=== PATIENT | male | born 1945 | race Caucasian/White ===

== ENCOUNTER 2019-02-26 11:13 | Observation (INO) ==
[~2019-02-26 11:13] MED LIST: Vancomycin 1,000 MG, Sodium Chloride IRRigation 1,000 ML IR ONE
[2019-02-26] MEDS ORDERED: CeFAZolin Syr 2,000MG/20 ML 2,000 MG/20 ML SYRINGE IVPB ONE (11:33)
[2019-02-26] MEDS ORDERED: Albuterol 2.5 MG/3 ML NEBULIZER IH PRN ×2 (11:33→12:13)
[2019-02-26] MEDS ORDERED: Ringers Solution, Lactated 1,000 ML IVC SCH (11:45)
[2019-02-26] MEDS ORDERED: *HR* Promethazine 25 MG/ML VIAL IVP PRN (12:13)
[2019-02-26] MEDS ORDERED: *HR* OxyCODONE Immed Rel 5 MG TABLET PO PRN ×2 (12:13→18:32)
[2019-02-26] MEDS ORDERED: *HR* HYDROmorphone (PF) 1 MG/ML SYRINGE IVP PRN (12:13)
[2019-02-26] MEDS ORDERED: Acetaminophen IV 1,000 MG/100 ML INFUS..BTL IVPB ONE (12:13)
[2019-02-26] MEDS ORDERED: Ondansetron 4 MG/2 ML VIAL IVP ONE (12:13)
[2019-02-26] MEDS ORDERED: *HR* Labetalol 20 MG/4 ML SYRINGE IVP PRN ×2 (12:13→18:32)
[2019-02-26] MEDS ORDERED: *HR* FentaNYL (PF) 100 MCG/2 ML VIAL ONE (12:24)
[2019-02-26] MEDS ORDERED: Lidocaine HCL 4 ML Topical Solution (Laryng-O-Jet Kit Sterile Pak) TP ONE (12:24)
[2019-02-26] MEDS ORDERED: *HR* Succinylcholine 200 MG/10 ML VIAL IVP ONE (12:24)
[2019-02-26] MEDS ORDERED: Lidocaine -MPF 2% 2 ML VIAL ONE (12:24)
[2019-02-26] MEDS ORDERED: *HR* Propofol 200 MG/20 ML VIAL IVP ONE (12:24)
[2019-02-26] MEDS ORDERED: *HR* Remifentanil 1 MG VIAL IVP ONE ×2 (12:32→16:26)
[2019-02-26] MEDS ORDERED: Bupivacaine-MPF 0.25% 10 ML VIAL ONE (13:43)
[2019-02-26] MEDS ORDERED: Protamine Sulfate 50 MG/5 ML VIAL IVP ONE (13:43)
[2019-02-26] MEDS ORDERED: Heparin 1,000 UNITS/500 mL 500 ML ONE (13:43)
[2019-02-26] MEDS ORDERED: EPHEDrine 50 MG/ML VIAL ONE (14:24)
[2019-02-26] MEDS ORDERED: Ondansetron 4 MG/2 ML VIAL ONE (14:51)
[2019-02-26] MEDS ORDERED: Dexamethasone 4 MG/ML VIAL ONE (14:51)
[2019-02-26] MEDS ORDERED: *HR* Phenylephrine 10 MG/ML VIAL ONE (15:00)
[2019-02-26] MEDS ORDERED: Ondansetron 4 MG/2 ML VIAL IVP PRN (18:32)
[2019-02-26] MEDS ORDERED: *HR* Dextrose 50 % in Water (Syg) 50 ML SYRINGE IVP PRN (18:32)
[2019-02-26] MEDS ORDERED: Naloxone 0.4 MG/ML INJ IVP PRN (18:32)
[2019-02-26] MEDS ORDERED: 0.9 % Sodium Chloride 1,000 ML IVC SCH (18:32)
[2019-02-26] MEDS ORDERED: D5% in Water 1,000 ML IVC PRN (18:32)
[2019-02-26] MEDS ORDERED: Acetaminophen 325 MG TABLET PO PRN (18:32)
[2019-02-26] MEDS ORDERED: Dextrose Gel 15 GM/37.5 ML TUBE PO PRN ×2 (18:32)
[2019-02-26] MEDS ORDERED: *HR* HYDROcodone/Acet 5/325 mg TABLET PO PRN (18:32)
[2019-02-26] MEDS ORDERED: Insulin LISPRO 300 UNITS/3 ML VIAL SQ SCH (21:00)
[2019-02-27] MEDS ORDERED: *HR* Heparin 5,000 UNIT/ML VIAL SQ SCH ×2 (06:00)
[2019-02-27] MEDS ORDERED: Insulin LISPRO 300 UNITS/3 ML VIAL SQ SCH (07:30)
[2019-02-27] MEDS ORDERED: Aspirin Enteric Coated 81 MG Tablet PO SCH (09:00)
[2019-02-27] MEDS ORDERED: *HR* Metoprolol 5 MG/5 ML VIAL IVP SCH (09:00)
[2019-02-27] MEDS ORDERED: Fenofibrate 54 MG TABLET PO SCH (09:00)
[2019-02-27] MEDS ORDERED: *HR* Glimepiride 2 MG TABLET PO SCH (09:00)
[2019-02-27 10:19] VITALS: BP 164/75
== END 2019-02-27 10:38 | disposition home or self-care (01) | DRG 39 ==
LOC: SAMDAY 11:13 → 2NNU 18:22 → INTOOBSV 18:22
PROVIDERS: ADMIT Surgery; ATTEND Surgery

== ENCOUNTER 2019-04-08 06:57 | Inpatient (IN) ==
[2019-04-08] MEDS ORDERED: Albuterol 2.5 MG/3 ML NEBULIZER IH PRN (07:39)
[2019-04-08] MEDS ORDERED: levoFLOXacin 500 MG/100 ML 500 MG/100 ML BAG IVPB ONE (07:39)
[2019-04-08] MEDS ORDERED: MetroNIDAZOLE 500 MG/100 ML 500 MG/100 ML BAG IVPB ONE (07:40)
[2019-04-08] MEDS ORDERED: Ringers Solution, Lactated 1,000 ML IVC SCH (07:45)
[2019-04-08] MEDS ORDERED: Celecoxib 200 MG CAPSULE PO ONE (07:54)
[2019-04-08] MEDS ORDERED: Gabapentin 300 MG CAPSULE PO ONE (07:54)
[2019-04-08] MEDS ORDERED: *HR* OxyCODONE Immed Rel 5 MG TABLET PO PRN (07:55)
[2019-04-08] MEDS ORDERED: *HR* Promethazine 25 MG/ML VIAL IVP PRN (07:55)
[2019-04-08] MEDS ORDERED: Ondansetron 4 MG/2 ML VIAL IVP ONE (07:55)
[2019-04-08] MEDS ORDERED: *HR* HYDROmorphone (PF) 1 MG/ML SYRINGE IVP PRN (07:55)
[2019-04-08] MEDS ORDERED: *HR* Labetalol 20 MG/4 ML SYRINGE IVP PRN (07:55)
[2019-04-08] MEDS ORDERED: *HR* FentaNYL (PF) 100 MCG/2 ML VIAL ONE (08:14)
[2019-04-08] MEDS ORDERED: *HR* Propofol 200 MG/20 ML VIAL IVP ONE (08:14)
[2019-04-08] MEDS ORDERED: *HR* Rocuronium Bromide 50 MG/5 ML VIAL ONE ×2 (08:21→10:39)
[2019-04-08] MEDS ORDERED: *HR* Succinylcholine 200 MG/10 ML VIAL IVP ONE (08:21)
[2019-04-08] MEDS ORDERED: Lidocaine -MPF 2% 2 ML VIAL ONE (08:21)
[2019-04-08] MEDS ORDERED: Dexmedetomidine HCl 400 MCG/100 ML MLS IVC ONE (08:33)
[2019-04-08] MEDS ORDERED: Ketamine *HR* 500 MG/10 ML MDV ONE (08:33)
[2019-04-08] MEDS ORDERED: Bupivacaine/EPI 1:200k 0.5%PF 30 ML VIAL ONE (08:38)
[2019-04-08] MEDS ORDERED: *HR* Magnesium Sulfate 1 GM/2 ML VIAL ONE ×2 (08:43→12:21)
[2019-04-08] MEDS ORDERED: Propofol 500 MG/50 ML INFUS..BTL ONE ×4 (08:45→11:55)
[2019-04-08] MEDS ORDERED: EPHEDrine 50 MG/ML VIAL ONE ×2 (09:17→10:20)
[2019-04-08] MEDS ORDERED: Dexamethasone 4 MG/ML VIAL ONE (09:25)
[2019-04-08] MEDS ORDERED: Ondansetron 4 MG/2 ML VIAL ONE ×2 (09:25→12:36)
[2019-04-08] MEDS ORDERED: ROPIVACAINE/PF/NS 0.25% 1 EACH SYRINGE INTRAART ONE (11:24)
[2019-04-08] MEDS ORDERED: Albumin Human 5% 25.0 GM/500 ML VIAL ONE (12:00)
[2019-04-08] MEDS ORDERED: Ketorolac 30 MG/ML VIAL ONE (12:37)
[2019-04-08] MEDS ORDERED: Ondansetron 4 MG/2 ML VIAL IVP PRN (15:06)
[2019-04-08] MEDS ORDERED: Naloxone 0.4 MG/ML INJ IVP PRN (15:06)
[2019-04-08] MEDS: 0.9 % Sodium Chloride 1,000 ML IVC SCH (15:37)
[2019-04-08] MEDS: levoFLOXacin 500 MG/100 ML 500 MG/100 ML BAG IVPB SCH (15:37)
[2019-04-08] MEDS: Morphine Sulfate Oral CONC 10 MG/0.5 ML ORAL.SYG SL PRN ×2 (15:37→20:30)
[2019-04-08] MEDS: MetroNIDAZOLE 500 MG/100 ML 500 MG/100 ML BAG IVPB SCH (16:55)
[2019-04-08] MEDS: Acetaminophen IV 1,000 MG/100 ML INFUS..BTL IVPB SCH (17:57)
[2019-04-09] MEDS: Acetaminophen IV 1,000 MG/100 ML INFUS..BTL IVPB SCH ×5 (01:39→23:41)
[2019-04-09] MEDS: MetroNIDAZOLE 500 MG/100 ML 500 MG/100 ML BAG IVPB SCH ×2 (01:40→08:56)
[2019-04-09 06:37] LABS: Basophils % 0.1 %; Hemoglobin 11.1 g/dL (12.9-16.9); Immature Granulocytes % 0.2 % (0-4); Lymphocytes # 0.4 K/mcL (0.6-4.6); Lymphocytes % 3.7 %; Mean Corpuscular HGB Conc 33.6 g/dL (31.6-35.5); Mean Corpuscular Hemoglobin 29.1 pg (28.0-33.3); Mean Corpuscular Volume 86.4 fL (83.0-100.0); Mean Platelet Volume 8.7 fL (9.4-12.4); Monocytes # 0.9 K/mcL (0.0-1.3); Monocytes % 9.3 %; Neutrophils # 8.6 K/mcL (1.6-8.9); Platelet Count 302 K/mcL (140-400); Red Blood Count 3.82 M/mcL (4.19-5.50); Red Cell Distribution Width 11.4 % (11.5-14.5); Segmented Neutrophils % 86.7 %; White Blood Count 9.9 K/mcL (4.3-11.1)
[2019-04-09] MEDS: Morphine Sulfate Oral CONC 10 MG/0.5 ML ORAL.SYG SL PRN ×2 (06:52→11:32)
[2019-04-09 06:53] LABS: BUN/Creatinine Ratio 20 (6-26); Blood Urea Nitrogen 16 mg/dL (8-23); Calcium 8.6 mg/dL (8.6-10.3); Carbon Dioxide 22 mEq/L (23-29); Chloride 97 mEq/L (98-107); Glucose 252 mg/dL (70-105); Osmolality,Calculated 276 (280-300); Potassium 4.3 mEq/L (3.5-5.1); Sodium 128 mEq/L (136-145); eGFR For African Americans > 60 (> 60); eGFR For Non-African Americans > 60 (> 60)
[2019-04-09] MEDS: 0.9 % Sodium Chloride 1,000 ML IVC SCH (06:53)
[2019-04-09] MEDS: *HR* Heparin 5,000 UNIT/ML VIAL SQ SCH ×2 (11:32→17:03)
[2019-04-09] MEDS: levoFLOXacin 500 MG/100 ML 500 MG/100 ML BAG IVPB SCH (15:04)
[2019-04-09] MEDS: *HR* Metoprolol 5 MG/5 ML VIAL IVP SCH (19:46)
[2019-04-10] MEDS: 0.9 % Sodium Chloride 1,000 ML IVC SCH ×3 (03:38→21:14)
[2019-04-10] MEDS: *HR* Metoprolol 5 MG/5 ML VIAL IVP SCH ×4 (03:40→19:34)
[2019-04-10] MEDS ORDERED: D5% in Water 250 ML IV BAG IV ONE (05:14)
[2019-04-10] MEDS ORDERED: *HR* Norepinephrine 4 MG/4 ML VIAL IVC ONE ×2 (05:14→18:39)
[2019-04-10] MEDS ORDERED: *HR* Amiodarone 150 MG/3 ML VIAL IVPB ONE (05:14)
[2019-04-10] MEDS ORDERED: *HR* Amiodarone Premix 360 MG/200 ML BAG IVC ONE (05:14)
[2019-04-10] MEDS ORDERED: *HR* Midazolam HCl 2 MG/2 ML VIAL IV ONE (05:14)
[2019-04-10] MEDS ORDERED: *HR* EPINEPHrine 1 MG/10 ML SYRINGE IVP ONE (05:14)
[2019-04-10] MEDS ORDERED: *HR* Magnesium Sulfate 2 GM/50 ML PIGGYBACK IVPB ONE (05:14)
[2019-04-10] MEDS ORDERED: *HR* Etomidate 20 MG/10 ML AMPUL IVP ONE (05:14)
[2019-04-10] MEDS ORDERED: *HR* Midazolam HCl 5 MG/5 ML VIAL IVP ONE (05:14)
[2019-04-10] MEDS ORDERED: *HR* Atropine Sulfate 1 MG/10 ML SYRINGE IV ONE (05:14)
[2019-04-10] MEDS: Acetaminophen IV 1,000 MG/100 ML INFUS..BTL IVPB SCH ×3 (05:29→21:40)
[2019-04-10] MEDS: *HR* Heparin 5,000 UNIT/ML VIAL SQ SCH ×2 (05:30→21:14)
[2019-04-10] MEDS: Nicotine 21 MG PATCH.TD24 TD SCH (10:45)
[2019-04-10] MEDS: Morphine Sulfate Oral CONC 10 MG/0.5 ML ORAL.SYG SL PRN (10:45)
[2019-04-10 15:01] LABS: ABG Base Excess -12 mEq/L (-2 to 3); ABG HCO3 21 mEq/L (21-27); ABG Oxygen Saturation 86 % (95-98); ABG PCO2 82 mmHg (35-45); ABG PH 7.01 pH Units (7.32-7.45); ABG PO2 79 mmHg (85-104); ABG TCO2 23 mEq/L (20-26)
[2019-04-10] MEDS ORDERED: Artificial Tears SOLN 15 ML BOTTLE BOTH EYES PRN (15:46)
[2019-04-10] MEDS ORDERED: Dexmedetomidine HCl 400 MCG/100 ML MLS IVC SCH (16:00)
[2019-04-10 16:16] LABS: Hematocrit 33.1 % (37.5-50.1); Hemoglobin 11.1 g/dL (12.9-16.9); Mean Corpuscular HGB Conc 33.5 g/dL (31.6-35.5); Mean Corpuscular Hemoglobin 29.4 pg (28.0-33.3); Mean Corpuscular Volume 87.8 fL (83.0-100.0); Mean Platelet Volume 8.9 fL (9.4-12.4); Platelet Count 302 K/mcL (140-400); Red Blood Count 3.77 M/mcL (4.19-5.50); Red Cell Distribution Width 11.9 % (11.5-14.5); White Blood Count 5.6 K/mcL (4.3-11.1)
[2019-04-10 16:23] LABS: ABG Base Excess -10 mEq/L (-2 to 3); ABG HCO3 18 mEq/L (21-27); ABG Oxygen Saturation 86 % (95-98); ABG PCO2 47 mmHg (35-45); ABG PH 7.19 pH Units (7.32-7.45); ABG PO2 62 mmHg (85-104); ABG TCO2 19 mEq/L (20-26); Blood Gas Modality AF; Blood Gas VT 450 cc
[2019-04-10 16:38] LABS: Monocytes # 0.3 K/mcL (0.0-1.3); Neutrophils # 2.2 K/mcL (1.6-8.9)
[2019-04-10] MEDS: Norepinephrine 4 MG in 0.9 % Sodium Chloride 250 ML IVC SCH ×2 (16:42→18:30)
[2019-04-10 16:46] LABS: Albumin 2.9 g/dL (3.5-5.7); Albumin/Globulin Ratio 1.3 (1.1-2.2); Bilirubin,Total 0.9 mg/dL (0.3-1.0); Calcium 8.4 mg/dL (8.6-10.3); Globulin 2.3 g/dL (2.4-3.5); Potassium 5.5 mEq/L (3.5-5.1); Total Protein 5.2 g/dL (6.4-8.9); Troponin I 0.03 ng/mL (< 0.04)
[2019-04-10 17:32] LABS: Hematocrit 36.1 % (37.5-50.1); Hemoglobin 11.7 g/dL (12.9-16.9); Mean Corpuscular HGB Conc 32.4 g/dL (31.6-35.5); Mean Corpuscular Hemoglobin 29.3 pg (28.0-33.3); Mean Corpuscular Volume 90.3 fL (83.0-100.0); Mean Platelet Volume 9.2 fL (9.4-12.4); Platelet Count 293 K/mcL (140-400); Red Cell Distribution Width 11.9 % (11.5-14.5); White Blood Count 4.6 K/mcL (4.3-11.1)
[2019-04-10 17:34] LABS: ABG Base Excess -15 mEq/L (-2 to 3); ABG HCO3 16 mEq/L (21-27); ABG Oxygen Saturation 69 % (95-98); ABG PCO2 65 mmHg (35-45); ABG PH 7.01 pH Units (7.32-7.45); ABG PO2 54 mmHg (85-104); ABG TCO2 18 mEq/L (20-26); Blood Gas Modality AF; Blood Gas VT 500 cc
[2019-04-10] MEDS ORDERED: 0.9 % Sodium Chloride 1,000 ML ONE (17:38)
[2019-04-10 17:43] LABS: Albumin 2.4 g/dL (3.5-5.7); Calcium 10.3 mg/dL (8.6-10.3); Globulin 2.3 g/dL (2.4-3.5); Potassium 6.1 mEq/L (3.5-5.1); Total Protein 4.7 g/dL (6.4-8.9)
[2019-04-10] MEDS ORDERED: Insulin Human Regular 300 UNIT/3 ML per UNIT IV ONE (17:45)
[2019-04-10] MEDS ORDERED: Sodium Bicarbonate 150 MEQ in D5% in Water 1,000 ML IVC ONE (17:45)
[2019-04-10 17:48] LABS: Lymphocytes # 2.8 K/mcL (0.6-4.6); Monocytes # 0.1 K/mcL (0.0-1.3); Neutrophils # 1.8 K/mcL (1.6-8.9); Reactive Lymphocytes Present (Not Present)
[2019-04-10 17:54] LABS: Troponin I 0.06 ng/mL (< 0.04)
[2019-04-10] MEDS ORDERED: *HR* Heparin 5,000 UNIT/ML VIAL IVP PRN ×3 (17:55→20:22)
[2019-04-10] MEDS ORDERED: PrismaSATE BGK 4/2.5 5,000 ML CRRT SCH ×2 (18:00)
[2019-04-10] MEDS ORDERED: 0.9 % Sodium Chloride 1,000 ML PRIME SCH ×2 (18:00→20:30)
[2019-04-10 18:07] LABS: Magnesium 3.5 mg/dL (1.6-2.6)
[2019-04-10] MEDS ORDERED: Sodium Bicarbonate 50 MEQ/50 ML VIAL ONE (18:17)
[2019-04-10] MEDS ORDERED: D5% in Water 0 ML ONE (18:39)
[2019-04-10] MEDS ORDERED: Sodium Bicarbonate 50 MEQ/50 ML VIAL IVP ONE (19:20)
[2019-04-10] MEDS ORDERED: Insulin Human Regular 10 UNIT in 0.9 % Sodium Chloride 10 ML IV ONE (19:23)
[2019-04-10] MEDS: FentaNYL (PF) 1,000 MCG in 0.9 % Sodium Chloride 80 ML IVC SCH (19:25)
[2019-04-10] MEDS ORDERED: Calcium Gluconate 1gm/50mL 1 GM/50 ML BAG IVPB PRN ×2 (20:20)
[2019-04-10] MEDS ORDERED: PrismaSATE BGK 2/0 5,000 ML CRRT SCH ×2 (20:30)
[2019-04-10] MEDS ORDERED: Heparin 25,000 UNIT/250 ML D5W 25,000 UNIT/250 ML IV.SOLN IVC SCH (20:30)
[2019-04-10] MEDS ORDERED: 0.9 % Sodium Chloride 250 ML ONE (20:42)
[2019-04-10] MEDS ORDERED: Calcium Chloride 4,000 MG in 0.9 % Sodium Chloride 1,000 ML CRRT SCH (21:00)
[2019-04-10] MEDS: Artificial Tears SOLN 15 ML BOTTLE BOTH EYES SCH ×2 (21:05→22:32)
[2019-04-10 21:19] LABS: Hematocrit 36.6 % (37.5-50.1); Mean Corpuscular HGB Conc 32.8 g/dL (31.6-35.5); Mean Corpuscular Hemoglobin 28.8 pg (28.0-33.3); Mean Platelet Volume 8.9 fL (9.4-12.4); Platelet Count 296 K/mcL (140-400); Red Blood Count 4.16 M/mcL (4.19-5.50)
[2019-04-10 21:24] LABS: Prothrombin Time 23.2 Seconds (9.4-12.1)
[2019-04-10] MEDS: Norepinephrine 8 MG in 0.9 % Sodium Chloride 250 ML IVC SCH (21:40)
[2019-04-10] MEDS: Cefepime HCl 2,000 MG in 0.9 % Sodium Chloride Mini Bag 100 ML IVPB SCH (22:21)
[2019-04-10] MEDS: Chlorhexidine Rinse 15 ML MOUTHWASH MM SCH (22:32)
[2019-04-10] MEDS ORDERED: Amiodarone Premix 360 MG/200 ML BAG IVC ONE (23:00)
[2019-04-10] MEDS: MetroNIDAZOLE 500 MG/100 ML 500 MG/100 ML BAG IVPB SCH ×2 (23:06→23:12)
[2019-04-10] MEDS: Amiodarone Premix 360 MG/200 ML BAG IVC SCH (23:07)
[2019-04-10 23:58] LABS: VBG Ionized Calcium 1.01 mmol/L (1.15-1.35)
[2019-04-11] MEDS: Acetaminophen IV 1,000 MG/100 ML INFUS..BTL IVPB SCH ×5 (00:27→23:09)
[2019-04-11] MEDS: Artificial Tears SOLN 15 ML BOTTLE BOTH EYES SCH ×7 (00:27→23:09)
[2019-04-11] MEDS: FentaNYL (PF) 1,000 MCG in 0.9 % Sodium Chloride 80 ML IVC SCH ×3 (00:44→22:50)
[2019-04-11 02:20] LABS: VBG Ionized Calcium 0.95 mmol/L (1.15-1.35)
[2019-04-11 02:27] LABS: Calcium 7.3 mg/dL (8.6-10.3); Potassium 3.8 mEq/L (3.5-5.1)
[2019-04-11] MEDS ORDERED: *HR* Heparin 5,000 UNIT/ML VIAL ONE (02:41)
[2019-04-11] MEDS ORDERED: PRISMASATE BGK CRRT SCH ×2 (02:45)
[2019-04-11 04:07] LABS: Calcium 7.3 mg/dL (8.6-10.3); Potassium 4.3 mEq/L (3.5-5.1)
[2019-04-11 04:11] LABS: ABG Base Excess -4 mEq/L (-2 to 3); ABG HCO3 24 mEq/L (21-27); ABG Oxygen Saturation 87 % (95-98); ABG PCO2 56 mmHg (35-45); ABG PH 7.24 pH Units (7.32-7.45); ABG PO2 63 mmHg (85-104); ABG TCO2 26 mEq/L (20-26); Blood Gas Modality ASSIST CONTROL; Blood Gas VT 500 cc
[2019-04-11 04:12] LABS: Basophils # 0.1 K/mcL (0.0-0.2); Eosinophils % 0.2 %; Hematocrit 35.6 % (37.5-50.1); Hemoglobin 11.8 g/dL (12.9-16.9); Immature Granulocytes % 2.3 % (0-4); Lymphocytes # 0.5 K/mcL (0.6-4.6); Lymphocytes % 10.2 %; Mean Corpuscular HGB Conc 33.1 g/dL (31.6-35.5); Mean Corpuscular Hemoglobin 28.6 pg (28.0-33.3); Mean Corpuscular Volume 86.4 fL (83.0-100.0); Mean Platelet Volume 9.2 fL (9.4-12.4); Monocytes # 0.4 K/mcL (0.0-1.3); Monocytes % 7.1 %; Neutrophils # 4.1 K/mcL (1.6-8.9); Nucleated Red Blood Cells 0.4 /100 WBC (0); Platelet Count 239 K/mcL (140-400); Red Blood Count 4.12 M/mcL (4.19-5.50); Segmented Neutrophils % 79.2 %; White Blood Count 5.2 K/mcL (4.3-11.1)
[2019-04-11] MEDS: PrismaSATE BGK 4/2.5 5,000 ML CRRT SCH ×8 (04:32→23:34)
[2019-04-11] MEDS: 0.9 % Sodium Chloride 1,000 ML IVC SCH ×2 (04:34→14:21)
[2019-04-11 04:35] LABS: Reactive Lymphocytes Present (Not Present)
[2019-04-11 04:36] LABS: Platelet Estimate Normal (Normal)
[2019-04-11] MEDS ORDERED: Aminoglycoside Consult 1 EACH MC ONE (05:14)
[2019-04-11] MEDS ORDERED: Sodium Bicarbonate 150 MEQ in D5% in Water 1,000 ML IVC SCH ×2 (05:20→19:30)
[2019-04-11] MEDS: Cefepime HCl 2,000 MG in 0.9 % Sodium Chloride Mini Bag 100 ML IVPB SCH ×2 (06:26→17:02)
[2019-04-11] MEDS ORDERED: Pantoprazole 40 MG VIAL IVP SCH (06:30)
[2019-04-11] MEDS: MetroNIDAZOLE 500 MG/100 ML 500 MG/100 ML BAG IVPB SCH ×3 (06:30→17:30)
[2019-04-11] MEDS: Norepinephrine 8 MG in 0.9 % Sodium Chloride 250 ML IVC SCH ×3 (06:36→14:05)
[2019-04-11] MEDS: Nicotine 21 MG PATCH.TD24 TD SCH (07:19)
[2019-04-11] MEDS: Chlorhexidine Rinse 15 ML MOUTHWASH MM SCH ×2 (07:20→20:23)
[2019-04-11] MEDS: Amiodarone Premix 360 MG/200 ML BAG IVC SCH (08:11)
[2019-04-11] MEDS ORDERED: 0.9 % Sodium Chloride 500 ML ONE (09:55)
[2019-04-11] MEDS ORDERED: *HR* Heparin 5,000 UNIT/ML VIAL IVP PRN ×2 (14:43)
[2019-04-11 15:15] LABS: Heparin anti-factor XA UFH 0.14 IU/mL (0.30-0.70); INR 2.3; Prothrombin Time 25.9 Seconds (9.4-12.1)
[2019-04-11 15:47] LABS: Albumin 2.5 g/dL (3.5-5.7); Albumin/Globulin Ratio 1.3 (1.1-2.2); Bilirubin,Direct 0.7 mg/dL (0.0-0.2); Bilirubin,Indirect 0.3 mg/dL (0.0-1.0); Thyroid Stimulating Hormone 0.583 mcIU/mL (0.340-5.600); Total Protein 4.5 g/dL (6.4-8.9)
[2019-04-11] MEDS ORDERED: 0.9 % Sodium Chloride 1,000 ML IVC ONE ×2 (17:19→20:09)
[2019-04-11] MEDS ORDERED: Sodium Bicarbonate 50 MEQ/50 ML VIAL IVP ONE (17:19)
[2019-04-11] MEDS ORDERED: Thiamine (B-1) 100 MG in 0.9 % Sodium Chloride 50 ML IVPB STA (17:19)
[2019-04-11] MEDS ORDERED: 0.9 % Sodium Chloride 1,000 ML IV ONE (17:20)
[2019-04-11] MEDS ORDERED: Sodium Bicarbonate 50 MEQ/50 ML VIAL ONE (17:21)
[2019-04-11] MEDS ORDERED: 0.9 % Sodium Chloride 1,000 ML ONE (17:21)
[2019-04-11 17:23] LABS: ABG Base Excess -13 mEq/L (-2 to 3); ABG HCO3 18 mEq/L (21-27); ABG Oxygen Saturation 83 % (95-98); ABG PCO2 63 mmHg (35-45); ABG PH 7.07 pH Units (7.32-7.45); ABG PO2 68 mmHg (85-104); ABG TCO2 20 mEq/L (20-26); Blood Gas Modality AF; Blood Gas VT 500 cc
[2019-04-11] MEDS: Hydrocortisone Sodium Succ 100 MG/2 ML VIAL IVP SCH ×2 (17:52→23:08)
[2019-04-11] MEDS: Heparin 25,000 UNIT/250 ML D5W 25,000 UNIT/250 ML IV.SOLN IVC SCH ×2 (18:17→18:30)
[2019-04-11] MEDS ORDERED: Thiamine (B-1) 200 MG in 0.9 % Sodium Chloride 50 ML IVPB SCH (20:02)
[2019-04-11 20:30] LABS: Basophils % 0.1 %; Eosinophils % 0.6 %; Hematocrit 33.6 % (37.5-50.1); Hemoglobin 11.6 g/dL (12.9-16.9); Immature Granulocytes % 1.4 % (0-4); Lymphocytes # 0.3 K/mcL (0.6-4.6); Lymphocytes % 4.4 %; Mean Corpuscular HGB Conc 34.5 g/dL (31.6-35.5); Mean Corpuscular Hemoglobin 30.3 pg (28.0-33.3); Mean Corpuscular Volume 87.7 fL (83.0-100.0); Mean Platelet Volume 9.4 fL (9.4-12.4); Monocytes # 0.8 K/mcL (0.0-1.3); Monocytes % 11.4 %; Nucleated Red Blood Cells 1.1 /100 WBC (0); Platelet Count 164 K/mcL (140-400); Red Blood Count 3.83 M/mcL (4.19-5.50); Red Cell Distribution Width 12.6 % (11.5-14.5); Segmented Neutrophils % 82.1 %
[2019-04-11 20:32] LABS: ABG Base Excess -9 mEq/L (-2 to 3); ABG HCO3 18 mEq/L (21-27); ABG Oxygen Saturation 94 % (95-98); ABG PCO2 44 mmHg (35-45); ABG PH 7.23 pH Units (7.32-7.45); ABG PO2 83 mmHg (85-104); ABG TCO2 20 mEq/L (20-26); Blood Gas Modality AF; Blood Gas VT 500 cc
[2019-04-11 20:46] LABS: Neutrophils # 5.8 K/mcL (1.6-8.9)
[2019-04-11 21:07] LABS: Albumin 2.3 g/dL (3.5-5.7); Albumin/Globulin Ratio 1.2 (1.1-2.2); Bilirubin,Direct 0.8 mg/dL (0.0-0.2); Bilirubin,Indirect 0.4 mg/dL (0.0-1.0); Bilirubin,Total 1.2 mg/dL (0.3-1.0); Calcium 6.9 mg/dL (8.6-10.3); Globulin 1.9 g/dL (2.4-3.5); Potassium 5.7 mEq/L (3.5-5.1); Total Protein 4.2 g/dL (6.4-8.9)
[2019-04-11 21:22] LABS: Platelet Estimate Normal (Normal); Reactive Lymphocytes Present (Not Present)
[2019-04-11] MEDS ORDERED: *HR* Dextrose 50 % in Water (Syg) 50 ML SYRINGE IVP PRN (21:50)
[2019-04-11] MEDS ORDERED: Dextrose Gel 15 GM/37.5 ML TUBE PO PRN ×2 (21:50)
[2019-04-11] MEDS ORDERED: D5% in Water 1,000 ML IVC PRN (21:50)
[2019-04-11 22:11] LABS: Magnesium 2.3 mg/dL (1.6-2.6); Phosphorous 5.9 mg/dL (2.7-4.5)
[2019-04-11] MEDS: Calcium Gluconate 1gm/50mL 1 GM/50 ML BAG IVPB SCH ×3 (23:08→23:49)
[2019-04-11] MEDS: Insulin LISPRO 300 UNITS/3 ML VIAL SQ SCH (23:30)
[2019-04-12 00:14] LABS: Calcium 6.8 mg/dL (8.6-10.3); Potassium 5.9 mEq/L (3.5-5.1)
[2019-04-12] MEDS: Calcium Gluconate 1gm/50mL 1 GM/50 ML BAG IVPB SCH ×3 (00:21→03:50)
[2019-04-12 01:01] LABS: ABG Base Excess -11 mEq/L (-2 to 3); ABG HCO3 16 mEq/L (21-27); ABG Oxygen Saturation 93 % (95-98); ABG PCO2 42 mmHg (35-45); ABG PO2 82 mmHg (85-104); ABG TCO2 18 mEq/L (20-26); Blood Gas Modality AF; Blood Gas VT 500 cc
[2019-04-12] MEDS: MetroNIDAZOLE 500 MG/100 ML 500 MG/100 ML BAG IVPB SCH (02:06)
[2019-04-12 02:20] LABS: Basophils % 0.2 %; Eosinophils % 0.2 %; Hematocrit 32.4 % (37.5-50.1); Hemoglobin 10.6 g/dL (12.9-16.9); Lymphocytes # 0.4 K/mcL (0.6-4.6); Mean Corpuscular HGB Conc 32.7 g/dL (31.6-35.5); Mean Corpuscular Hemoglobin 29.1 pg (28.0-33.3); Mean Platelet Volume 9.5 fL (9.4-12.4); Monocytes % 9.3 %; Neutrophils # 8.7 K/mcL (1.6-8.9); Nucleated Red Blood Cells 1.2 /100 WBC (0); Platelet Count 137 K/mcL (140-400); Red Blood Count 3.64 M/mcL (4.19-5.50); Red Cell Distribution Width 12.8 % (11.5-14.5); Segmented Neutrophils % 85.3 %; White Blood Count 10.2 K/mcL (4.3-11.1)
[2019-04-12 02:27] LABS: VBG Ionized Calcium 1.03 mmol/L (1.15-1.35)
[2019-04-12] MEDS: Artificial Tears SOLN 15 ML BOTTLE BOTH EYES SCH (03:09)
[2019-04-12 03:11] LABS: Platelet Estimate Normal (Normal); Toxic Granulation Present (Not Present); Toxic Vacuolation Present (Not Present)
[2019-04-12 03:31] LABS: Alanine Aminotransferase 1631 Units/L (7-52); Albumin 2.1 g/dL (3.5-5.7); Albumin/Globulin Ratio 1.2 (1.1-2.2); Alkaline Phosphatase 63 Units/L (34-104); Aspartate Amino Transferase > 3000 Units/L (13-39); BUN/Creatinine Ratio 17 (6-26); Bilirubin,Total 1.2 mg/dL (0.3-1.0); Blood Urea Nitrogen 24 mg/dL (8-23); Calcium 7.3 mg/dL (8.6-10.3); Carbon Dioxide 14 mEq/L (23-29); Chloride 99 mEq/L (98-107); Creatine Kinase 7287 Units/L (30-223); Globulin 1.7 g/dL (2.4-3.5); Glucose 93 mg/dL (70-105); Magnesium 2.3 mg/dL (1.6-2.6); Osmolality,Calculated 284 (280-300); Phosphorous 6.5 mg/dL (2.7-4.5); Potassium 6.3 mEq/L (3.5-5.1); Sodium 135 mEq/L (136-145); Total Protein 3.8 g/dL (6.4-8.9); eGFR For African Americans > 60 (> 60); eGFR For Non-African Americans 50 (> 60)
[2019-04-12] MEDS: Insulin LISPRO 300 UNITS/3 ML VIAL SQ SCH (03:50)
[2019-04-12 04:01] VITALS: BP 127/50
[2019-04-12] MEDS ORDERED: PrismaSATE BGK 2/0 5,000 ML CRRT SCH ×2 (04:15)
[2019-04-12] MEDS: Norepinephrine 8 MG in 0.9 % Sodium Chloride 250 ML IVC SCH (04:40)
[2019-04-12] MEDS ORDERED: *HR* Atropine Sulfate 1 MG/10 ML SYRINGE ONE (04:52)
[2019-04-12] MEDS ORDERED: *HR* EPINEPHrine 1 MG/10 ML SYRINGE ONE (04:54)
[2019-04-12] MEDS ORDERED: *HR* EPINEPHrine 1 MG/10 ML SYRINGE IVP ONE (04:56)
[2019-04-12] MEDS ORDERED: Calcium Chloride 4,000 MG in 0.9 % Sodium Chloride 1,000 ML IVPB SCH (05:00)
== END 2019-04-12 05:15 | disposition expired | DRG 826 ==
LOC: SAMDAY 06:57 → 3ANU 15:04 → ICNU 04-10 15:34
PROVIDERS: ADMIT Surgery; ATTEND Surgery